=== PATIENT | male | born 2000 | race Caucasian/White ===

== ENCOUNTER 2020-02-25 03:21 | Emergency (ER) | payer OTHER ==
--- NOTE | 2020-02-25 03:58 | EDM.PDOC ---
ED HPI GENERAL MEDICAL PROBLEM - General Chief Complaint: Chest Pain Stated Complaint: CHEST PAIN Time Seen by Provider: 02/25/20 03:35 Source of Information: Reports: Patient History Limitations: Reports: No Limitations - History of Present Illness INITIAL COMMENTS - FREE TEXT/NARRATIVE: Mr. Barker is a very pleasant 19-year-old man with a past medical history significant for anxiety, untreated for the past 2 months, who now presents to the ED with a complaint of sharp left-sided chest pain since 02/23/2020. The pain does not radiate. He states that the pain will come and go, typically present in the afternoon or evening, and not present when he exercises at the gym. He has not identified any modifiers. No associated fever, cough, dyspnea, nausea, or diaphoresis. No prior similar symptoms. The patient states that the main reason that he came to the ED this morning is because he Googled his symptoms, and became anxious. The patient states that he took 200 mg of ibuprofen today, which did not help. Here in the ED, the patient's initial BP is found to be modestly elevated at 164/102, otherwise, he is hemodynamically stable, afebrile, saturating 99% on room air. Other than his left sided chest pain, the patient denies having a recent fever, chills, sore throat, ear pain, nasal or sinus congestion, cough, dyspnea, palpitations, nausea, vomiting, constipation, diarrhea, abdominal pain, urinary symptoms, recent weight gain or weight loss, recent bloody bowel movements or black bowel movements, recent joint aches, headaches, or rashes. The patient does not have a PCP. Left Chest Pain Score (Numeric/FACES): 8 - Related Data Allergies Allergy/AdvReac Type Severity Reaction Status Date / Time No Known Allergies Allergy Verified 02/25/20 03:35 Home Meds: Home Meds . [No Known Home Meds] 02/25/20 [History] Past Medical History Psychiatric History: Reports: Anxiety (untreated x Dec 2019) - Past Surgical History HEENT Surgical History: Reports: Other (See Below) (Cleft palate repair as a ) Social & Family History - Tobacco Use Smoking Status *Q: Former Smoker Tobacco Use Within Last Twelve Months: Smokeless Tobacco (Quit chewing 1/2 can per day in Dec 2019, after 6 months of use), Vaping (Quit THC Dec 2019 after 1 yr of use. Quit THC Dec 2019 after 3 yrs of use.) Years of Tobacco use: 8 Packs/Tins Daily: 0.3 Month/Year Tobacco Last Used: Quit Dec 2019 - Alcohol Use Alcohol Use History: Yes Alcohol Use Frequency: Socially - Recreational Drug Use Recreational Drug Use: Yes Drug Use in Last 12 Months: Yes Recreational Drug Type: Reports: Marijuana/Hashish (last smoked Dec 2019) - Living Situation & Occupation Living situation: Reports: Single, with Family Occupation: Unemployed ED ROS GENERAL - Review of Systems Review Of Systems: Comprehensive ROS is negative, except as noted in HPI. ED EXAM, GENERAL - Physical Exam Exam: See Below Exam Limited By: No Limitations General Appearance: Alert, WD/WN, No Apparent Distress Eye Exam: Bilateral Eye: EOMI, Normal Inspection Ears: Normal External Exam, Hearing Grossly Normal Nose: Normal Inspection Throat/Mouth: Normal Inspection, Normal Lips, Normal Voice, No Airway Compromise Head: Atraumatic, Normocephalic Neck: Normal Inspection, Full Range of Motion Respiratory/Chest: No Respiratory Distress, Lungs Clear, Normal Breath Sounds, No Accessory Muscle Use, Chest Non-Tender, Other (Pain not induced with pressing hands together with outstretched arms in front of him or with crossing his left upper extremity in front of his chest) Cardiovascular: Normal Peripheral Pulses, Regular Rate, Rhythm, No Edema, No Ga llop, No JVD, No Murmur, No Rub Peripheral Pulses: 3+: Radial (L), Radial (R) GI/Abdominal: Normal Bowel Sounds, Soft, Non-Tender, No Organomegaly, No Distention, No Abnormal Bruit, No Mass (Male) Exam: Deferred Rectal (Males) Exam: Deferred Back Exam: Normal Inspection, Full Range of Motion, NT Extremities: Normal Inspection, Normal Range of Motion, No Pedal Edema, Normal Capillary Refill Neurological: Alert, Oriented, Normal Cognition, No Motor/Sensory Deficits Psychiatric: Normal Affect Skin Exam: Warm, Dry, Intact, Normal Color, No Rash EKG INTERPRETATION EKG Date: 02/25/20 Time: 04:05 Rhythm: NSR Rate (Beats/Min): 71 [place]: Normal P-Wave: Present QRS: Normal ST-T: Normal QT: Normal Comparison: NA - No Prior EKG Course - Vital Signs Last Recorded V/S: Last Vital Signs Temp 36.2 C 02/25/20 03:35 Pulse 90 02/25/20 03:35 Resp 16 02/25/20 03:35 BP 164/102 H 02/25/20 03:35 Pulse Ox 99 02/25/20 03:35 - Orders/Labs/Meds Orders: Active Orders 24 hr Category Date Time Status EKG Documentation Completion [RC] STAT Care 02/25/20 03:51 Active Chest 2V [CR] Stat Exams 02/25/20 03:51 Taken Labs: Laboratory Tests 02/25/20 02/25/20 02/25/20 Range/Units 04:02 04:02 04:02 WBC 7.36 (4.23-9.07) K/mm3 RBC 5.53 (4.63-6.08) M/mm3 Hgb 15.8 (13.7-17.5) gm/dl Hct 45.7 (40.1-51.0) % MCV 82.6 (79.0-92.2) fl MCH 28.6 (25.7-32.2) pg MCHC 34.6 (32.2-35.5) g/dl RDW Std Deviation 37.8 (35.1-43.9) fL Plt Count 191 (163-337) K/mm3 MPV 10.5 (9.4-12.3) fl Neutrophils % (Manual) 54 (40-60) % Band Neutrophils % 0 (0-10) % Lymphocytes % (Manual) 38 (20-40) % Atypical Lymphs % 0 % Monocytes % (Manual) 7 (2-10) % Eosinophils % (Manual) 1 (0.8-7.0) % Basophils % (Manual) 0 L (0.2-1.2) Platelet Estimate Adequate Plt Morphology Comment Normal RBC Morph Comment Normal D-Dimer, Quantitative < 0.19 L (0.19-0.50) mg/L Sodium 141 (136-145) mEq/L Potassium 3.4 L (3.5-5.1) mEq/L Chloride 103 (98-107) mEq/L Carbon Dioxide 27 (21-32) mEq/L Anion Gap 14.4 (5-15) BUN 16 (7-18) mg/dL Creatinine 1.1 (0.7-1.3) mg/dL Est Cr Clr Drug Dosing 107.12 mL/min Estimated GFR (MDRD) > 60 (>60) mL/min BUN/Creatinine Ratio 14.5 (14-18) Glucose 100 (74-106) mg/dL Calcium 8.8 (8.5-10.1) mg/dL Magnesium 2.0 (1.8-2.4) mg/dl Total Bilirubin 0.4 (0.2-1.0) mg/dL AST 21 (15-37) U/L ALT 42 (16-63) U/L Alkaline Phosphatase 95 (46-116) U/L Troponin I < 0.017 (0.00-0.056) ng/mL Total Protein 7.6 (6.4-8.2) g/dl Albumin 4.2 (3.4-5.0) g/dl Globulin 3.4 gm/dL Albumin/Globulin Ratio 1.2 (1-2) COVID-19 ([facility]) (NEGATIVE) 02/25/20 Range/Units 04:53 WBC (4.23-9.07) K/mm3 RBC (4.63-6.08) M/mm3 Hgb (13.7-17.5) gm/dl Hct (40.1-51.0) % MCV (79.0-92.2) fl MCH (25.7-32.2) pg MCHC (32.2-35.5) g/dl RDW Std Deviation (35.1-43.9) fL Plt Count (163-337) K/mm3 MPV (9.4-12.3) fl Neutrophils % (Manual) (40-60) % Band Neutrophils % (0-10) % Lymphocytes % (Manual) (20-40) % Atypical Lymphs % % Monocytes % (Manual) (2-10) % Eosinophils % (Manual) (0.8-7.0) % Basophils % (Manual) (0.2-1.2) Platelet Estimate Plt Morphology Comment RBC Morph Comment D-Dimer, Quantitative (0.19-0.50) mg/L Sodium (136-145) mEq/L Potassium (3.5-5.1) mEq/L Chloride (98-107) mEq/L Carbon Dioxide (21-32) mEq/L Anion Gap (5-15) BUN (7-18) mg/dL Creatinine (0.7-1.3) mg/dL Est Cr Clr Drug Dosing mL/min Estimated GFR (MDRD) (>60) mL/min BUN/Creatinine Ratio (14-18) Glucose (74-106) mg/dL Calcium (8.5-10.1) mg/dL Magnesium (1.8-2.4) mg/dl Total Bilirubin (0.2-1.0) mg/dL AST (15-37) U/L ALT (16-63) U/L Alkaline Phosphatase (46-116) U/L Troponin I (0.00-0.056) ng/mL Total Protein (6.4-8.2) g/dl Albumin (3.4-5.0) g/dl Globulin gm/dL Albumin/Globulin Ratio (1-2) COVID-19 ([facility]) Negative (NEGATIVE) - Re-Assessments/Exams Free Text/Narrative Re-Assessment/Exam: 02/25/20 03:52 As above, the patient has been experiencing sharp left sided chest pain on and off for the past 2 days, worse at night, and not present when he is exercising. His pain is not reproducible with palpation, nor with left pectoralis muscle flexion. I strongly doubt a cardiac etiology, but I have ordered a work-up to make sure, including blood work, a chest x-ray, an ECG, and a swab for the macro SARS. 02/25/20 04:21 Two-view chest radiograph appears to be grossly normal. The cardiac silhouette is within normal limits. No pulmonary vascular congestion. No pleural effusions. No focal infiltrate. No pneumothorax. Formal read per the Radiologist pending. 02/25/20 05:17 The patient's test for the SARS-CoV-2 virus has returned negative. 02/25/20 05:19 Test results discussed with the patient. As above, today's work-up is entirely unremarkable. Based on his history and physical exam, I suspect that his pain is due to muscle spasm. I recommended [id number] ibuprofen as needed for discomfort. Departure - Departure Time of Disposition: 05:20 Disposition: Home, Self-Care 01 Condition: Good Clinical Impression: Muscle spasm - Discharge Information *PRESCRIPTION DRUG MONITORING PROGRAM REVIEWED*: Not Applicable *COPY OF PRESCRIPTION DRUG MONITORING REPORT IN PATIENT KELLY: Not Applicable Referrals: PCP,None [Primary Care Provider] - Forms: ED Department Discharge Additional Instructions: You were seen in the emergency room 2 days of intermittent left chest pain. Work-up in the ER included blood work, a chest x-ray, an ECG, and a swab for the SARS-CoV-2 virus. Your entire work-up was unremarkable. You have not suffered a heart attack. You do not have a blood clot in your lungs. You do not have pneumonia. You do not have a collapsed lung. Your test for the SARS-CoV-2 virus returned negative. Based on your history, physical exam, and ER tests, your left-sided chest pain is most likely due to a muscle spasm. We recommend that you take [id number] ibuprofen, 3 tablets (600 mg) up to every 8 hours, with food, as needed for discomfort. If any other problems, please do not hesitate to return to the ER. Sepsis Event Note (ED) - Evaluation Sepsis Screening Result: No Definite Risk - Focused Exam Vital Signs: Vital Signs Temp Pulse Resp BP Pulse Ox 02/25/20 03:35 36.2 C 90 16 164/102 H 99 - My Orders Last 24 Hours: My Active Orders 02/25/20 03:51 EKG Documentation Completion [RC] STAT Chest 2V [CR] Stat - Assessment/Plan Last 24 Hours: My Active Orders 02/25/20 03:51 EKG Documentation Completion [RC] STAT Chest 2V [CR] Stat
--- NOTE | 2020-02-25 08:06 | CR ---
Chest: 2 views of the chest were obtained. Comparison: No previous chest imaging. Heart size and mediastinum are normal. Lungs are clear with no acute parenchymal change. Bony structures are grossly intact. Impression: 1. Nothing acute is seen on 2 view chest x-ray. Diagnostic code #1 This report was dictated in MDT
== END 2020-02-25 05:44 | disposition home or self-care (01) ==
LOC: JD.ED 03:21
DX: M62.838 Other muscle spasm (principal); F17.210 Nicotine dependence, cigarettes, uncomplicated; Z20.828 Contact with and (suspected) exposure to other viral communicable diseases
CPT/HCPCS: 36415; 71046; 71046-26; 80053; 83735; 84484; 85007; 85027; 85379; 93005; 93010; 99283; 99285-25; U0002